=== PATIENT | female | born 1990 | race African-American/Black ===

== ENCOUNTER → 2018-12-29 | Outpatient (CLI) | payer MEDICARE, OTHER ==
[2015-08-29 16:20] VITALS: BP 112/75
[~2018-12-29] MED LIST: NAPR-683 PO
--- NOTE | 2018-12-29 16:19 | KCIC ---
PREG 1ST TRIMESTER History: Unsure dates Comparison: None. Findings: Multiple sonographic images of the pelvis are submitted. Cervix measured 4.6 m in length. There is a single intrauterine gestational sac. There is posterior placenta. Amniotic fluid volume is within normal limits. Gestational sac morphology is within normal limits. There is identifiable pole. [place]-rump length measurement of 6.1 cm corresponds with 12 weeks 4 days. Adjusted ultrasound age is 12 weeks 4 days with estimated delivery date of 07/09/2019. LMP dating is not provided. There is demonstrable cardiac activity 147 bpm. anatomy is not well visualized at this age of the . Uterus measured about 15.3 x 7.9 x 6.4 cm. Right maternal ovary measured 4.2 x 2.7 x 2.7 cm. There is a hypoechoic lesion of the right ovary about 1.9 x 1.9 x 1.4 cm. There is normal color flow and low resistance vascularity of the right ovary. Left ovary measured 2.8 x 1.9 x 1.6 cm, normal low resistance vascularity. Impression: 1. There is single viable intrauterine , adjusted ultrasound age of 12 weeks 4 days with estimated delivery date of 07/09/2019. 2. There is small cyst of the right ovary. Electronically signed by: Jesus Barker MD (12/29/2018 4:16 PM) [id number]
== END | disposition home or self-care (01) ==
LOC: KCIC US 11:14
PROVIDERS: ATTEND Advanced Practice Midwife
DX: O34.81 Maternal care for other abnormalities of pelvic organs, first trimester (principal); N83.201 Unspecified ovarian cyst, right side; Z3A.12 12 weeks gestation of pregnancy
CPT/HCPCS: 76801